=== PATIENT | male | born 1995 | race African-American/Black ===

== ENCOUNTER → 2017-03-14 | Outpatient (CLI) | payer OTHER ==
[~2017-03-14] MED LIST: NAPR500T PO; PRAZ1CAP; REME45TA; SERO50TA; ZOLO100T
== END ==
LOC: M OUTALCOH 08:08
PROVIDERS: ATTEND Psychiatry & Neurology Psychiatry
DX: F12.20 Cannabis dependence, uncomplicated (principal)

== ENCOUNTER 2017-03-28 12:21 | Emergency (ER) | payer OTHER ==
[~2017-03-28] VITALS: Ht 182.9 cm; Wt 79.5 kg
[2017-03-28 12:22] VITALS: BP 120/59
[2017-03-28] MEDS ORDERED: PRAZ1CAP (12:34)
[2017-03-28] MEDS ORDERED: ZOLO100T (12:34)
[2017-03-28] MEDS ORDERED: SERO50TA (12:34)
[2017-03-28] MEDS ORDERED: REME45TA (12:34)
--- NOTE | 2017-03-28 13:20 | REP ---
Left knee five views : There is no fracture or dislocation. Mineralization and joint spaces are normal. There are no calcifications or foreign bodies. Impression: Negative left knee . Signed by Bryan Nicole MD 03/28/2017 01:11 P
[2017-03-28] MEDS ORDERED: NAPR500T PO (13:51)
== END 2017-03-28 14:17 | disposition home or self-care (01) ==
LOC: M ED 12:21
DX: S86.812A Strain of other muscle(s) and tendon(s) at lower leg level, left leg, initial encounter (principal); W18.42XA Slipping, tripping and stumbling without falling due to stepping into hole or opening, initial encounter; Y92.410 Unspecified street and highway as the place of occurrence of the external cause; Y93.01 Activity, walking, marching and hiking; Y99.8 Other external cause status; Z79.899 Other long term (current) drug therapy

== ENCOUNTER 2017-04-24 16:00 | Outpatient (RCR) | payer OTHER, SELFPAY ==
[2017-04-24] MEDS ORDERED: IBUP-1022 PO (19:59)
== END 2017-05-03 ==
LOC: M OUTALCOH 16:00
PROVIDERS: ATTEND Psychiatry & Neurology Psychiatry
DX: F12.20 Cannabis dependence, uncomplicated (principal)

== ENCOUNTER 2017-04-24 18:25 | Emergency (ER) | payer OTHER, SELFPAY ==
[~2017-04-24] VITALS: Ht 182.9 cm; Wt 71.3 kg
[2017-04-24 18:26] VITALS: BP 132/60
--- NOTE | 2017-04-24 19:39 | REP ---
Right shoulder: Three views: History: Pain after lifting weights. Findings: Three views of the right shoulder show normal alignment of the glenohumeral and acromioclavicular joints. No fracture or subluxation is seen. Periarticular soft tissues are unremarkable. Impression: Negative views of the left shoulder. Signed by Kenan Evangelista MD 04/24/2017 07:49 P
[2017-04-24] MEDS ORDERED: IBUP-1022 PO (19:59)
== END 2017-04-24 20:08 | disposition home or self-care (01) ==
LOC: M ED 18:25
DX: S43.401A Unspecified sprain of right shoulder joint, initial encounter (principal); X50.9XXA Other and unspecified overexertion or strenuous movements or postures, initial encounter; Y92.39 Other specified sports and athletic area as the place of occurrence of the external cause; Y93.B3 Activity, free weights; Y99.8 Other external cause status; F41.9 Anxiety disorder, unspecified; F33.9 Major depressive disorder, recurrent, unspecified; F17.210 Nicotine dependence, cigarettes, uncomplicated; Z79.899 Other long term (current) drug therapy

== ENCOUNTER 2017-05-04 15:00 | Outpatient (RCR) | payer OTHER | END 2017-06-03 | LOC: M OUTALCOH 15:00 | DX: F12.20 Cannabis dependence, uncomplicated (principal) ==

== ENCOUNTER → 2017-08-20 | Outpatient (CLI) | payer MEDICAID | LOC: M OUTALCOH 08:05 | DX: F12.20 Cannabis dependence, uncomplicated (principal) ==

== ENCOUNTER 2017-08-30 13:59 | Outpatient (RCR) | payer MEDICAID | END 2017-09-01 | LOC: M OUTALCOH 13:59 | DX: F12.20 Cannabis dependence, uncomplicated (principal); Z72.0 Tobacco use ==

== ENCOUNTER 2017-09-06 15:05 | Outpatient (RCR) | payer MEDICAID | END 2017-10-01 | LOC: M OUTALCOH 09-17 08:45 | DX: F12.20 Cannabis dependence, uncomplicated (principal); Z72.0 Tobacco use ==

== ENCOUNTER 2017-10-03 10:07 | Outpatient (RCR) | payer MEDICAID | END 2017-11-01 | LOC: M OUTALCOH 10:07 | DX: F12.20 Cannabis dependence, uncomplicated (principal); Z72.0 Tobacco use ==

== ENCOUNTER 2017-11-07 10:14 | Outpatient (RCR) | payer MEDICAID | END 2017-12-01 | LOC: M OUTALCOH 10:14 | DX: F12.20 Cannabis dependence, uncomplicated (principal); Z72.0 Tobacco use ==

== ENCOUNTER 2017-12-06 14:56 | Outpatient (RCR) | payer MEDICAID | END 2018-01-01 | LOC: M OUTALCOH 14:56 | DX: F12.20 Cannabis dependence, uncomplicated (principal); Z72.0 Tobacco use ==

== ENCOUNTER 2018-02-07 15:25 | Outpatient (RCR) | payer MEDICAID | END 2018-03-03 | LOC: M OUTALCOH 15:25 | DX: F12.20 Cannabis dependence, uncomplicated (principal); Z72.0 Tobacco use ==

== ENCOUNTER 2018-03-11 14:19 | Outpatient (RCR) | payer MEDICAID | END 2018-04-03 | LOC: M OUTALCOH 03-21 15:00 | DX: F12.20 Cannabis dependence, uncomplicated (principal); Z72.0 Tobacco use ==

== ENCOUNTER 2018-04-15 11:10 | Outpatient (RCR) | payer MEDICAID | END 2018-05-03 | LOC: M OUTALCOH 11:10 | DX: F12.20 Cannabis dependence, uncomplicated (principal); Z72.0 Tobacco use ==

== ENCOUNTER 2019-11-26 17:01 | Inpatient (IN) | payer MEDICAID ==
[~2019-11-26] VITALS: Ht 185.4 cm; Wt 68.2 kg
[~2019-11-26 17:01] MED LIST changes: +BACT800T5 PO; +IBUP-1022 PO; +NAPR-837 PO; -NAPR500T PO
[2019-11-26 18:17] LABS: HEMATOCRIT 39.4 % (42.0-52.0); HEMOGLOBIN 13.3 g/dl (13.5-17.5); MEAN CORPUSCULAR HEMOGLOBIN 31.1 pg (27.0-33.0); MEAN CORPUSCULAR HGB CONC 33.8 g/dl (32.0-36.5); MEAN CORPUSCULAR VOLUME 92.3 fl (80.0-96.0); PLATELET COUNT, AUTOMATED 126 10^3/uL (150-450); RED BLOOD COUNT 4.27 10^6/uL (4.30-6.10); WHITE BLOOD COUNT 6.7 10^3/uL (4.0-10.0)
[2019-11-26 19:15] LABS: ACETAMINOPHEN LEVEL < 2.0 UG/ML (10.0-30.0); ALBUMIN 4.2 GM/DL (3.2-5.2); ALT/SGPT 23 U/L (12-78); BILIRUBIN,DIRECT 0.2 MG/DL (0.0-0.2); BILIRUBIN,TOTAL 0.5 MG/DL (0.2-1.0); BLOOD UREA NITROGEN 10 MG/DL (7-18); CALCIUM LEVEL 9.2 MG/DL (8.5-10.1); CARBON DIOXIDE LEVEL 29 MEQ/L (21-32); CHLORIDE LEVEL 107 MEQ/L (98-107); CREATININE FOR GFR 1.26 MG/DL (0.70-1.30); ETHYL ALCOHOL (ETHANOL) < 0.003 % (0.000-0.010); GLOMERULAR FILTRATION RATE > 60.0 (>60); GLUCOSE, FASTING 93 MG/DL (70-100); POTASSIUM SERUM 3.8 MEQ/L (3.5-5.1); SALICYLATE LEVEL 2.5 MG/DL (5.0-30.0); SODIUM LEVEL 139 MEQ/L (136-145); TOTAL PROTEIN 7.5 GM/DL (6.4-8.2)
[2019-11-26 19:15] LABS: AMPHETAMINES LEVEL URINE NEGATIVE (NEGATIVE); BARBITURATES URINE NEGATIVE (NEGATIVE); BENZODIAZEPINES URINE NEGATIVE (NEGATIVE); CANNABINOIDS URINE POSITIVE (NEGATIVE); COCAINE METABOLITE URINE NEGATIVE (NEGATIVE); METHADONE URINE NEGATIVE (NEGATIVE); OPIATES URINE NEGATIVE (NEGATIVE); PHENCYCLIDINE URINE NEGATIVE (NEGATIVE)
[2019-11-26] MEDS ORDERED: HALOPERIDOL 5MG/ML VIAL (J1630 PER 1) IM STA (20:45)
[2019-11-26] MEDS ORDERED: diphenhydrAMINE 50MG/ML VIAL (J1200) IM STA (20:45)
[2019-11-26] MEDS ORDERED: HALOPERIDOL 5MG/ML VIAL (J1630 PER 1) As Ordered ONE (20:48)
[2019-11-26] MEDS ORDERED: diphenhydrAMINE 50MG/ML VIAL (J1200) As Ordered ONE (20:48)
[2019-11-26] MEDS ORDERED: LORazepam 2 MG/ML VIAL As Ordered ONE (20:49)
[2019-11-26] MEDS ORDERED: ACETAMINOPHEN TAB 650MG DOSE (2X325MG) PO PRN (23:00)
[2019-11-26] MEDS ORDERED: NICOTINE 21MG/24HR 1 EA TRANSDERMAL TD PRN (23:00)
[2019-11-26] MEDS ORDERED: OLANZapine ORAL DISINTEGRATING TAB 5MG PO PRN (23:00)
[2019-11-26] MEDS ORDERED: MOM 30ML SUSPENSION UDC PO PRN (23:00)
[2019-11-26] MEDS ORDERED: traZODone 50 MG TAB PO PRN (23:00)
[2019-11-26] MEDS ORDERED: MAALOX 30 ML SUSP *UDC PO PRN (23:00)
[2019-11-27 00:24] VITALS: BP 115/60
--- NOTE | 2019-11-27 09:46 | MHHPEPDOC ---
[facility] History & Physical History and Physical DATE OF ADMISSION: Nov 26, 2019 at 22:59 HPI: Jimmy presents today for concerns regarding his depression and grieving. Jimmy lost family members in a car accident, he reports that he cant grieve since he has too many responsibilities. He notes that didnt get to say goodbye to his brother, he is having trouble to accept that. He denies any previous treatment for mental health issues. Jimmy states that he has been in and out of intermediate for the last 7 years. ALLERGIES: He has no allergies to medications. MEDICATIONS: Jimmy is currently not taking any medications. MEDICAL HISTORY: He reports a history of trauma. FAMILY HISTORY: Mom is currently active duty residing in [place] with a good rel ationship. No family history of mental health problems reported or diagnosed. Objective Appearance: Well groomed. Well nourished. Behavior: Engaged. Cooperative with good eye contact. Pleasant. Affect: Appropriate to context. Full range. Mood: Appropriately reactive. Generally good. Euthymic. Speech: Normal volume. Normal rate. Motor: No gross motor abnormalities. Cognition: Alert, Attentive, and Oriented to person, place, time. Memory: No gross abnormalities of short or intermodal dispatcher memory noted during interview. No formal testing. Thought Form: Linear and goal directed. Thought Content: No thoughts of self harm. No evidence of suicidal ideation. No evidence of aggressive or homicidal ideation. No evidence of delusions. Perception: No perceptual abnormalities noted. Judgement: intact as evidenced by decision making in the recent past. Insight: good insight into symptoms and treatment options. Assessment F43.24 Adjustment disorder with disturbance of conduct F12.90 Cannabis use, unspecified, uncomplicated Plan The patient at the time of discharge did not meet criteria for involuntary admission/extension due to having a normal mental status exam, fair insight into the situation, They are engaged in the discharge process, as well as being friendly and amenable in behavioral control and havent been engaging in any observed concerning behavior or ideation recently. They decline voluntary extension/admission at this time and must be discharged in good gaby, as Im unable to make a case for holding the patient against their will. They may have historical risk factors of admissions and other interactions with psychiatry however, those are not modifiable from a clinical perspective. The patient will need to be discharged in good gaby. He is likely in a state of adjustment and said situation and statements dont appear to reflect accurately his risk for suicide. Hes denying suicidality through his observation. He has good insight and good judgement and describes very eloquently the situation that brought him in and appears quite amenable with no signs of depre ssion attached. Vital Signs Vital Signs Date Time Temp Pulse Resp B/P (MAP) Pulse Ox O2 Delivery O2 Flow Rate FiO2 11/27/19 00:24 98.9 54 18 115/60 (78) 100 Room Air Laboratory Data 24H Labs Laboratory Tests 2 11/26/19 17:07: Urine Opiates Screen NEGATIVE, Urine Methadone Screen NEGATIVE, Urine Barbiturates Screen NEGATIVE, Urine Phencyclidine Screen NEGATIVE, Urine Amphetamines Screen NEGATIVE, Urine Benzodiazepines Screen NEGATIVE, Urine Cocaine Metabolite Screen NEGATIVE, Urine Cannabinoids Screen POSITIVEH 11/26/19 17:42: Nucleated Red Blood Cells % (auto) 0.0, Anion Gap 3L, Glomerular Filtration Rate > 60.0, Calcium Level 9.2, Total Bilirubin 0.5, Direct Bilirubin 0.2, Aspartate Amino Transf (AST/SGOT) 21, Alanine Aminotransferase (ALT/SGPT) 23, Alkaline P hosphatase 57, Total Protein 7.5, Albumin 4.2, Albumin/Globulin Ratio 1.3, Thyroid Stimulating Hormone (TSH) 1.040, Salicylates Level 2.5L, Acetaminophen Level < 2.0L, Ethyl Alcohol Level < 0.003 CBC/BMP Laboratory Tests 11/26/19 17:42 Medications Scheduled PRN Nicotine (Nicotine Patch) 21 Mg Patch.td24, 1 PATCH TD DAILY PRN for Nicotine withdrawl. Allergies Coded Allergies: broccoli (Verified Allergy, Intermediate, swelling, 11/26/19) pineapple (Verified Allergy, Intermediate, hives, 11/26/19) KLAUS HECTOR DO Nov 27, 2019 09:46
[2019-11-27] MEDS ORDERED: NICO21PAT TD (10:57)
--- NOTE | 2019-11-27 11:36 | MHDSPDOC ---
[facility] Discharge Summary Discharge Summary DATE OF ADMISSION: Nov 26, 2019 at 22:59 DATE OF DISCHARGE: Nov 27, 2019 at 13:15 please see H&P for same-day discharge Vital Signs/I&Os Vital Signs Date Time Temp Pulse Resp B/P (MAP) Pulse Ox O2 Delivery O2 Flow Rate FiO2 11/27/19 00:24 98.9 54 18 115/60 (78) 100 Room Air Laboratory Data Labs 24H Laboratory Tests 2 11/26/19 17:07: Urine Opiates Screen NEGATIVE, Urine Methadone Screen NEGATIVE, Urine Mirta turates Screen NEGATIVE, Urine Phencyclidine Screen NEGATIVE, Urine Amphetamines Screen NEGATIVE, Urine Benzodiazepines Screen NEGATIVE, Urine Cocaine Metabolite Screen NEGATIVE, Urine Cannabinoids Screen POSITIVEH 11/26/19 17:42: Nucleated Red Blood Cells % (auto) 0.0, Anion Gap 3L, Glomerular Filtration Rate > 60.0, Calcium Level 9.2, Total Bilirubin 0.5, Direct Bilirubin 0.2, Aspartate Amino Transf (AST/SGOT) 21, Alanine Aminotransferase (ALT/SGPT) 23, Alkaline Phosphatase 57, Total Protein 7.5, Albumin 4.2, Albumin/Globulin Ratio 1.3, Thyroid Stimulating Hormone (TSH) 1.040, Salicylates Level 2.5L, Acetaminophen Level < 2.0L, Ethyl Alcohol Level < 0.003 CBC/BMP Laboratory Tests 11/26/19 17:42 Medications Scheduled PRN Nicotine (Nicotine Patch) 21 Mg Patch.td24, 1 PATCH TD DAILY PRN for Nicotine withdrawl. for 30 Days, #30 Allergies Coded Allergies: broccoli (Verified Allergy, Intermediate, swelling, 11/26/19) pineapple (Verified Allergy, Intermediate, hives, 11/26/19) KLAUS HECTOR DO Nov 27, 2019 11:36
--- NOTE | 2019-11-27 12:10 | HPE ---
DATE OF ADMISSION: 11/26/2019 CHIEF COMPLAINT: Depression. HISTORY OF PRESENT ILLNESS: This is a 24-year-old -[place] male with a history of Posttraumatic stress disorder (PTSD), cannabis use and social personality disorder, intermittent explosive disorder admitted to the inpatient mental health unit for severe depression with suicidal and homicidal ideation. The patient says that his three family members were killed in a motor vehicle accident recently, two uncles and his brother. Patient had been in [facility] multiple times in the past and was recently incarcerated and released and currently works at the [employer]. He has attempted to be very responsible and taking care of his girlfriend who is currently . Upon his brother's , the patient has had significant coping difficulties of a friend who happens to be a police captain senior was checking upon him yesterday and he said that he as exhibiting suicidal and homicidal tendencies and was subsequently brought into the emergency room for involuntary inpatient mental health unit (IMHU) admission. Patient states that he has been increasingly troubled by family issues. He "baby momma" had reached out to him after his brother had and was "giving him stress". He had lost his son from that relationship while he was incarcerated and was very upset that his girlfriend was using drugs and not taking care of his son who ended up on foster care. Patient says that he now has a girlfriend and they are expecting a child. He has been working at the [employer] and also worries about his other brother who had recently dropped off a friend in [place] and had no way to come back. He is anxious to be discharged so he can work and not be fired from his current job. He says that he is also supporting his mother who now needs to be fed, which his brother, who had had been doing prior to being in an accident. At the time, patient denies any medical complaints. He says he just needs to have time to grieve for his brother. He currently denies any suicidal or homicidal tendencies. He denies any physical complaints, sore throat, fever, chills, cough, shortness of breath, nausea, vomiting, diarrhea, abdominal pain, dysuria, urgency or frequency, fever or chills. Denies any bright red blood per rectum, melena, black tarry stools, dizziness, lightheadedness, vertigo, changes in vision, nasal congestion, ear, pain, discharge. PAST MEDICAL HISTORY: Posttraumatic stress disorder. Intermittent explosive disorder. Cannabis use. Antisocial personality. HOSPITAL MEDICATIONS: - Trazodone 50 mg nightly as needed - Zyprexa 5 mg every 4 hours as needed - acetaminophen 650 mg every 6 hours as needed - Milk of Magnesium 30 mL as needed - Mylanta 30 mL every 4 as needed - nicotine patch 21 mg daily SOCIAL HISTORY: Currently lives in his "crib" with his girlfriend who is . Works at the [employer]. Smokes a pack of cigarettes a day. Social alcohol use. Uses cannabis as recreational drug. FAMILY HISTORY: Unknown. REVIEW OF SYSTEMS: Per history of present illness (HPI), 12-point system otherwise negative. PHYSICAL EXAMINATION: Temperature 98.9, pulse 54, respiratory rate 18, blood pressure 115/60, 100% on room air. Generally, patient is tearful, awake, alert, oriented answering questions appropriately. He has some scarring on the right upper part of the face, which he said he sustained from prior incarceration. Extraocular muscles intact. Anicteric. No jaundice. Dry mucous membranes. Lungs are clear to auscultation. No wheezing, rales or rhonchi. Heart S1, S2 sinus rhythms. Abdomen is soft, nontender, nondistended. Positive bowel sounds. Extremities: No cyanosis, clubbing or any pitting edema. LABORATORY DATA: White count 6.7, hemoglobin 13, hematocrit 13.9, platelet count 126. Sodium 139, potassium 3.8, chloride 107, bicarbonate 29, BUN 10, creatinine 1.26, glucose 93. Liver function tests within normal limits. TSH 1.04. ASSESSMENT: 24-year-old with history of antisocial personality disorder, cannabis, intermittent explosive disorder, PTSD, admitted for depression and currently grieving for his brother who has recently along with his two uncles. Was found to have suicidal and homicidal ideations. Patient currently denies any suicidal intent plan at this time. IMPRESSION: 1. Severe depression with history of PTSD, intermittent explosive disorder, cannabis use and antisocial personality disorder. Deferred to psychiatrist for management. 2. Active tobacco use. Tobacco cessation counseling and nicotine patch. [facility]
== END 2019-11-27 13:15 | disposition home or self-care (01) | DRG 755 ==
LOC: M ED 17:01 → M ED INP 22:59 → M PSY 11-27 00:20
PROVIDERS: ADMIT Psychiatry & Neurology Addiction Medicine; ATTEND Psychiatry & Neurology Addiction Medicine
DX: F43.24 Adjustment disorder with disturbance of conduct (principal); F12.90 Cannabis use, unspecified, uncomplicated; Z91.018 Allergy to other foods; F17.210 Nicotine dependence, cigarettes, uncomplicated

== ENCOUNTER 2020-01-20 23:08 | Emergency (ER) | payer MEDICAID, OTHER, SELFPAY ==
[~2020-01-20] VITALS: Ht 182.9 cm; Wt 75.0 kg
[~2020-01-20 23:08] MED LIST changes: +NICO21PAT TD
[2020-01-21] MEDS ORDERED: KETOROLAC TROMETHAMINE 10 MG TAB PO ONE (01:15)
[2020-01-21 01:33] VITALS: BP 116/68
--- NOTE | 2020-01-21 11:31 | REPVR ---
PROCEDURE INFORMATION: Exam: XR Right Ankle Exam date and time: 01/20/2020 11:59 PM Age: 24 years old Clinical indication: Pain; Ankle; Right; Additional info: Injury TECHNIQUE: Imaging protocol: XR Right ankle. Views: 3 or more views. COMPARISON: CR Ankle, complete 04/10/2015 9:01 PM FINDINGS: Bones/joints: No acute bony injury or malalignment. Soft tissues: Unremarkable soft tissues. IMPRESSION: No acute bony injury or malalignment. Electronically signed by: Corey Bradford On 01/21/2020 11:32:04 AM
--- NOTE | 2020-01-21 11:33 | REPVR ---
PROCEDURE INFORMATION: Exam: XR Right Foot Complete Exam date and time: 01/20/2020 11:59 PM Age: 24 years old Clinical indication: Pain; Foot; Right; Additional info: Injury TECHNIQUE: Imaging protocol: XR Right foot. Views: 3 or more views. COMPARISON: CR Ankle, complete 04/10/2015 9:01 PM FINDINGS: Bones/joints: No acute bony injury or malalignment in the visualized right foot. Soft tissues: No radiopaque soft tissue foreign body. IMPRESSION: No acute bony injury or malalignment in the visualized right foot. Electronically signed by: Corey Bradford On 01/21/2020 11:33:48 AM
== END 2020-01-21 01:35 | disposition home or self-care (01) ==
LOC: M ED 23:08
DX: S93.401A Sprain of unspecified ligament of right ankle, initial encounter (principal); S93.601A Unspecified sprain of right foot, initial encounter; X50.1XXA Overexertion from prolonged static or awkward postures, initial encounter; Y92.828 Other wilderness area as the place of occurrence of the external cause; F41.9 Anxiety disorder, unspecified; F32.9 Major depressive disorder, single episode, unspecified; F17.210 Nicotine dependence, cigarettes, uncomplicated; Z91.018 Allergy to other foods